=== PATIENT | male | born 1975 | race Caucasian/White ===

== ENCOUNTER 2016-10-03 15:46 | Inpatient (IN) | payer BC, MEDICAID, OTHER ==
--- NOTE | 2016-10-03 16:02 | EDPHY ---
H & P Stated Complaint: manic episode Source: Patient, Family, Police - Personal History Current Tetanus/Diphtheria Vaccine: Yes Current Tetanus Diphtheria and Acellular Pertussis (TDAP): Yes Tetanus Vaccine Date: < 10 years - Medical/Surgical History Hx Asthma: No Hx Chronic Respiratory Disease: No Hx Diabetes: No Hx Cardiac Disease: No Hx Renal Disease: No Hx Cirrhosis: No Hx Alcoholism: No Hx HIV/AIDS: No Hx Splenectomy or Spleen Trauma: No Other PMH: bipolar, anxiety - Social History Smoking Status: Never smoked HPI/ROS: CHIEF COMPLAINT: M1, Paranoia HISTORY OF PRESENT ILLNESS: The patient is a currently homeless 40 y/o male arriving voluntarily via [employer] with [employer] customer contact representative on M1 for paranoia. Per his father, who is a physician and called the ED from [id number], the patient has a history of possibly bipolar I vs. schizoaffective disorder and decompensated 6 weeks ago. The patient is concerned that other people are going to harm him and has begun hearing voices. He sought out help voluntarily looking for help with his paranoia. He says, "I'm starting to have voices I haven't had before" that are "telling me other people are going to harm me." He denies visual hallucinations , but does endorse odd smells and says, "I thought people were trying to douse me with different chemicals, but I think that's probably the paranoia." He is complaint with his Gaffney and is asking for medication for anxiety in conjunction with his Gaffney. He reports he's tried several different antipsychotics that cause dyskinesias and un-tolerable side effects. He denies any recent illness, vomiting, diarrhea, abdominal pain, fever, or cough. REVIEW OF SYSTEMS: A 10 point review of systems was performed and is negative with the exception of the elements mentioned in the history of present illness. (Angeles Young) - Medical/Surgical History PMH: Schizoaffective disorder vs. bipolar I. (Angeles Young) - Social History Additional Social History: 2-3 drinks of alcohol daily. No cigarette use. "Couple grams" marijuana daily when he can afford it. 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 From [place] , but lived in [place] previously during school at [employer]. Father is a physician. Psychiatrist in [place]. Therapist [place]. Father: Anthony Shah [phone] Psychiatrist in [place]: Dr. Anderson [phone] (Angeles Young) - Physical Exam Exam: General Appearance: Alert, no acute distress. BP 147/92. Well groomed. Eyes: Pupils equal and round, no conjunctival injection, no discharge. ENT, Mouth: Mucous membranes are moist, no oropharyngeal erythema or edema. Neck: No lymphadenopathy, supple. Respiratory: Lungs are clear to auscultation; no wheezes, rales, or rhonchi. Cardiovascular: Regular rate and rhythm; no murmur, rub, or gallop. Gastrointestinal: Abdomen is soft and non tender, no masses or organomegaly, bowel sounds normal. Skin: Warm and dry, no rashes, normal color. Back: Nontender to palpation over the thoracolumbar spine. Extremities: No lower extremity edema, no calf tenderness or swelling. Neurological: Alert and oriented. Moving all four extremities easily and equally. Psychiatric: Anxious, paranoid. Pressured speech, directable during my exam. ( Angeles Young) Constitutional: Initial Vital Signs Temperature (C) 36.9 C 10/03/16 15:46 Heart Rate 93 10/03/16 15:46 Respiratory Rate 20 10/03/16 15:46 Blood Pressure 147/92 H 10/03/16 15:46 O2 Sat (%) 94 10/03/16 15:46 O2 Delivery Mode Room Air Allergies/Adverse Reactions: carbamazepine [From Tegretol] Allergy (Verified 10/03/16 15:52) Sulfa (Sulfonamide Antibiotics) Allergy (Verified 10/03/16 15:52) Home Medications: Medication Instructions Recorded Gaffney Carbonate ER [Lithobid 300 600 mg PO HS 10/03/16 mg (*)] Herbals/Supplements -Info Only 1 ea PO DAILY 10/04/16 Gaffney Carbonate ER [Eskalith Cr 450 mg PO DAILY 10/04/16 450 mg (*)] Vitamin B Complex [B Complex] 1 tab PO DAILY 10/04/16 diphenhydrAMINE [Benadryl 25 MG 25 mg PO DAILY PRN 10/04/16 (*)] Medical Decision Making ED Course/Re-evaluation: Stable vitals. Plan for standard psychiatric clearance labs then mental health assessment. 1655: Patient is becoming agitated and yelling threats at staff. IM Haldol and Ativan administered. Benadryl given also because of his history of reactions to antipsychotic medications. Gaffney 600 mg given. He tells me that he "bites off" his dose of lithium, thinks he takes 1050 mg daily, in two doses. He admits to missing today's dose. Gaffney level is low. He has remained cooperative throughout the rest of my shift. His care is transferred to Dr. Aaron Arias at 11:00 p.m.. Awaiting psychiatric evaluation at that time. (Angeles Young) 0649AM: No acute events overnight. Patient still needs mental health evaluation. (Aaron Arias) Differential Diagnosis: I considered a differential diagnosis that includes but is not limited to psychosis, mary, depression, suicidality, homicidality, drug abuse, medication noncompliance. (Angeles Young) Other Provider: I assumed care of the patient at 7 o'clock in the morning pending psychiatric evaluation. The patient remained stable throughout my shift. At 11:30 a.m. I am informed the patient has been accepted for inpatient psychiatric hospitalization here at [facility]. (Thien Vieira) - Data Points Laboratory Results: Laboratory Results 10/03/16 16:14 10/03/16 16:14 10/03/16 16:14 Total Bilirubin 0.8 mg/dL mg/dL (0.1-1.4) Conjugated Bilirubin 0.4 mg/dL mg/dL (0.0-0.5) Unconjugated Bilirubin 0.4 mg/dL mg/dL (0.0-1.1) AST 27 IU/L IU/L (17-59) ALT 26 IU/L IU/L (21-72) Alkaline Phosphatase 64 IU/L IU/L (38-126) Total Protein 7.9 g/dL g/dL (6.3-8.2) Albumin 4.7 g/dL g/dL (3.5-5.0) Medications Given: Discontinued Medications Diphenhydramine HCl (Benadryl Injection) 25 mg IM EDNOW ONE Stop: 10/03/16 17:03 Last Admin: 10/03/16 17:03 Dose: 25 mg Haloperidol Lactate (Haldol Injection) 5 mg IM EDNOW ONE Stop: 10/03/16 17:02 Last Admin: 10/03/16 17:03 Dose: 5 mg Gaffney Carbonate (Gaffney Carbonate) 600 mg PO EDNOW ONE Stop: 10/03/16 17:42 Last Admin: 10/04/16 01:36 Dose: 600 mg Lorazepam (Ativan Injection) 2 mg IM EDNOW ONE Stop: 10/03/16 17:02 Last Admin: 10/03/16 17:03 Dose: 2 mg Departure - Departure Disposition: [facility] IP Clinical Impression: Acute psychosis, Depression Condition: Good Report Scribed for: Angeles Young Report Scribed by: Tamera Gao Date of Report: 10/03/16 Time of Report: 16:28 Physician Review and Approval Statement: 10/03/16 16:40 Portions of this note were transcribed by the medical staff coordinator. I, Dr. Angeles Young, personally performed the history, physical exam, and medical decision- making; and confirmed the accuracy of the information in the transcribed note. ( Angeles Young)
[2016-10-03 16:30] LABS: % IMMATURE GRANULYOCYTES 0.3 % (0.0-1.1); ABSOLUTE IMMATURE GRANULOCYTES 0.03 10^3/uL (0.00-0.10); ADD DIFF? NO; ADD MORPH? NO; ADD SCAN? NO; ATYPICAL LYMPHOCYTE FLAG 0 (0-99); FRAGMENT RBC FLAG 0 (0-99); HEMATOCRIT 42.1 % (40.0-51.0); HEMOGLOBIN 14.7 g/dL (13.7-17.5); LEFT SHIFT FLG 0 (0-99); LIPEMIA HEMOLYSIS FLAG 90 (0-99); MEAN CELL HEMOGLOBIN 31.8 pg (27.9-34.1); MEAN CELL HEMOGLOBIN CONCENTR. 34.9 g/dL (32.4-36.7); MEAN CELL VOLUME 91.1 fL (81.5-99.8); MEAN PLATELET VOLUME 9.7 fL (8.7-11.7); PLATELET CLUMPS FLAG 0 (0-99); PLATELET COUNT 289 10^3/uL (150-400); RED BLOOD CELL COUNT 4.62 10^6/uL (4.40-6.38); RED CELL DISTRIBUTION WIDTH 11.5 % (11.5-15.2)
[2016-10-03 16:43] LABS: ANION GAP 10 mEq/L (8-16); CALCIUM 10.4 mg/dL (8.5-10.4); CARBON DIOXIDE 26 mEq/l (22-31); CHLORIDE 101 mEq/L (97-110); CREATININE 0.8 mg/dL (0.7-1.3); ETHANOL SERUM < 10 mg/dL (0-10); GLOMERULAR FILTRATION RATE > 60; GLUCOSE 106 mg/dL (70-100); LITHIUM 0.4 mEq/L (0.6-1.2); POTASSIUM 4.4 mEq/L (3.5-5.2); SODIUM 137 mEq/L (134-144)
[2016-10-03] MEDS ORDERED: LORazepam 2 MG/ML INJ ONE (16:55)
[2016-10-03] MEDS ORDERED: HALOPERIDOL LACT 5 MG/ML INJ ONE (16:55)
[2016-10-03] MEDS ORDERED: LORazepam 2 MG/ML INJ IM ONE (17:01)
[2016-10-03] MEDS ORDERED: HALOPERIDOL LACT 5 MG/ML INJ IM ONE (17:01)
[2016-10-03] MEDS ORDERED: LITHIUM CARBONATE 300 MG TAB PO ONE (17:41)
[2016-10-04] MEDS ORDERED: LITHIUM CARBONATE 300 MG TAB ONE ×2 (01:28→01:30)
[2016-10-04 12:47] LABS: ALBUMIN 4.7 g/dL (3.5-5.0); BILIRUBIN,TOTAL 0.8 mg/dL (0.1-1.4); BILIRUBIN-CONJUGATED 0.4 mg/dL (0.0-0.5); BILIRUBIN-UNCONJUGATED 0.4 mg/dL (0.0-1.1); TOTAL PROTEIN 7.9 g/dL (6.3-8.2)
[2016-10-04] MEDS ORDERED: MAGNESIUM HYDROXIDE 30 ML UDCUP PO PRN (15:17)
[2016-10-04] MEDS ORDERED: MAG HYDROX/AL HYDROX/SIMETH 30 ML UDCUP PO PRN (15:17)
[2016-10-04] MEDS ORDERED: OLANZapine 5 MG TAB PO PRN (15:19)
[2016-10-04] MEDS: LITHIUM CARBONATE ER 300 MG TAB PO SCH (21:01)
[2016-10-05] MEDS: LITHIUM CARBONATE ER 450 MG TAB PO SCH (08:47)
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
[2016-10-05] MEDS: LITHIUM CARBONATE ER 300 MG TAB PO SCH (20:18)
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
[2016-10-06] MEDS: LITHIUM CARBONATE ER 450 MG TAB PO SCH ×2 (08:36→11:31)
[2016-10-06] MEDS ORDERED: VITAMIN B COMPLEX 1 EA CAP/TAB PO SCH (14:15)
[2016-10-06] MEDS ORDERED: Herbals/Supplements -Info Only PO SCH (14:30)
--- NOTE | 2016-10-06 15:49 | SOAPPROG ---
SOAP Progress Note Assessment/Plan: Assessment: Plan: 10/06/16 15:52 Remains manic. Unable to adequately care for his needs or manage his illness at this time. He has had numerous recurrent hospitalizations and needs to achieve a periods of lasting stability. Will place on a STC and continue lithium alone for now as he refuses any other medications inc: any antipsychotic or additional mood stabilizer. Subjective: Pt seen, discussed with staff, chart reviewed, case discussed with Dr. Godinez and pt's outpt psychiatrist in [place], Dr. Banuelos. He is a 40 y/o CM with history of Bipolar D/o. Admitted due to mary. He is taking lithium at his previous outpatient dose, though refused it this morning. He slept 4 hours last night. Staff notes that he is accelerated, irritable and seems disorganized and irrational at times. Stated to CC that he was going to go to [place] or [place] and wants to climb the [place] or live in the [facility]. He tells me today that he is going to "go for a really long backpacking trip" by himself. He insists on d/c from the hospital today. He refuses to stay in the hospital on a voluntary basis. He refuses to take any antipsychotic despite his primary psychiatrist's observation that he has done better in the past when he takes them. He states he is going to fabio me and the hospital if I make him stay. He is informed of the goals for d/c and to be a voluntary patient. These include: sleeping more than six hours per night, exhibiting a stable mood with no excessive irritability and making a safe plan for housing and support. Objective: Vital Signs Temp Pulse Resp BP Pulse Ox 36.8 C 75 16 121/74 H 100 10/06/16 06:00 10/06/16 06:00 10/06/16 06:00 10/06/16 06:00 10/06/16 06:00 MSE: Animate, mildly agitated. Affect is expansive, irritable. Mood is "fine. " TP generally linear. TC reveals no overt psychosis, though poor reality testing and poor insight and judgement. Denies SI/HI/. - Time Spent With Patient Time Spent With Patient: 35" - Pending Discharge Pending Discharge Within 24 Hours: No Pending Discharge Within 48 Hours: No ICD10 Worksheet Patient Problems: Problems Problem Status Onset Acute psychosis Acute Depression Acute
[2016-10-06] MEDS ORDERED: VITAMIN B COMPLEX 1 EA CAP/TAB PO ONE (20:25)
[2016-10-06] MEDS: VITAMIN B COMPLEX 1 EA CAP/TAB PO SCH ×2 (20:27→20:28)
[2016-10-06] MEDS: LITHIUM CARBONATE ER 300 MG TAB PO SCH (20:58)
[2016-10-06] MEDS: LORazepam 0.5 MG TAB PO PRN (21:42)
[2016-10-07] MEDS: CHOLECALCIFEROL VIT D3 1,000 UNITS TAB PO SCH (09:11)
[2016-10-07] MEDS: LITHIUM CARBONATE ER 450 MG TAB PO SCH (09:11)
[2016-10-07] MEDS: VITAMIN B COMPLEX 1 EA CAP/TAB PO SCH (09:11)
--- NOTE | 2016-10-07 17:53 | SOAPPROG ---
SOAP Progress Note Assessment/Plan: Assessment: Plan: 10/06/16 15:52 Remains manic. Unable to adequately care for his needs or manage his illness at this time. He has had numerous recurrent hospitalizations and needs to achieve a periods of lasting stability. Will place on a STC and continue lithium alone for now as he refuses any other medications inc: any antipsychotic or additional mood stabilizer. 10/07/16 17:53 Chayito persists though more compliant today. Will CCM, monitor. Subjective: Pt seen, discussed with staff. He is calmer, more appropriate with me today. Talks in great detail about his recent revelations in math and physics and how this has caused him to "get a lot of people's attention." By this he means that he is being tracked and followed by the SUN and NSA because they want to kill him "to suppress my knowledge." States he is agreeable to staying in the hospital for now to stabilize on his meds and to allow his mother to help in d/ c planning or at least identification of resources. Objective: Vital Signs Temp Pulse Resp BP Pulse Ox 36.8 C 46 L 16 103/60 100 10/07/16 06:00 10/07/16 06:00 10/07/16 06:00 10/07/16 06:00 10/07/16 06:00 MSE: Moderately agitated, much more pleasant and coop. Speech is rapid, pressured. Affect is expansive, less irritable. Mood is "good.' TP tangential. TC reveals grandiose and paranoid delusions, IOR's. - Time Spent With Patient Time Spent With Patient: 25" - Pending Discharge Pending Discharge Within 24 Hours: No Pending Discharge Within 48 Hours: No ICD10 Worksheet Patient Problems: Problems Problem Status Onset Acute psychosis Acute Depression Acute
[2016-10-07] MEDS: LITHIUM CARBONATE ER 300 MG TAB PO SCH (21:02)
[2016-10-07] MEDS: LORazepam 0.5 MG TAB PO PRN (21:27)
[2016-10-08] MEDS: CHOLECALCIFEROL VIT D3 1,000 UNITS TAB PO SCH (09:27)
[2016-10-08] MEDS: LITHIUM CARBONATE ER 450 MG TAB PO SCH (09:27)
[2016-10-08] MEDS: VITAMIN B COMPLEX 1 EA CAP/TAB PO SCH (09:27)
--- NOTE | 2016-10-08 19:14 | SOAPPROG ---
SOAP Progress Note Assessment/Plan: Assessment: Plan: 10/06/16 15:52 Remains manic. Unable to adequately care for his needs or manage his illness at this time. He has had numerous recurrent hospitalizations and needs to achieve a periods of lasting stability. Will place on a STC and continue lithium alone for now as he refuses any other medications inc: any antipsychotic or additional mood stabilizer. 10/07/16 17:53 Chayito persists though more compliant today. Will [facility], monitor. 10/08/16 19:17 Remains severely ill. Presents well for while, but easily provoked without intention to reveal paranoid and aggressive thoughts. Remains gravely disabled and a threat to others. Will CCM, monitor closely. Place on assault precautions. Subjective: Pt seen, discussed with staff. Initially friendly and conversant when I enter the room with his permission. He is doing vigorous jumping jacks. Appears anxious, straining to appear happy and composed. Greets me heartily at first. He informs me that he has reviewed the paperwork and that we are "grossly out of compliance." He believes the [facility] paperwork was altered and states that several staff members "are going to fci." I tried to reinforce the concept that I was only interested in his wellbeing and he becomes enraged, shouting, " I know you are with the NSA and I am going to out you. You're !" I terminate the interview due to escalating agitation. Objective: Vital Signs Temp Pulse Resp BP Pulse Ox 36.4 C 59 L 16 102/64 98 10/08/16 06:00 10/08/16 06:00 10/08/16 06:00 10/08/16 06:00 10/08/16 06:00 MSE: Agitated, hostile, guarded, threatening. Affect is labile, angry. Mood is "pissed off." TP tangential to disorganized. TC reveals paranoid/ persecutory and grandiose delusions, IOR's, possible AH's. He placed me in reasonable fear of harm during interview due to level of verbal aggression/ hostility and physical imposition. - Time Spent With Patient Time Spent With Patient: 25" - Pending Discharge Pending Discharge Within 24 Hours: No Pending Discharge Within 48 Hours: No ICD10 Worksheet Patient Problems: Problems Problem Status Onset Acute psychosis Acute Depression Acute
[2016-10-08] MEDS: LITHIUM CARBONATE ER 300 MG TAB PO SCH (21:06)
[2016-10-08] MEDS: LORazepam 0.5 MG TAB PO PRN (22:01)
[2016-10-09] MEDS: LITHIUM CARBONATE ER 450 MG TAB PO SCH (11:03)
[2016-10-09] MEDS: VITAMIN B COMPLEX 1 EA CAP/TAB PO SCH (11:04)
[2016-10-09] MEDS: CHOLECALCIFEROL VIT D3 1,000 UNITS TAB PO SCH (11:04)
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
[2016-10-09] MEDS: LITHIUM CARBONATE ER 300 MG TAB PO SCH ×2 (17:36→18:23)
[2016-10-09] MEDS: LORazepam 0.5 MG TAB PO PRN (20:29)
[2016-10-10 08:36] LABS: LITHIUM 0.9 mEq/L (0.6-1.2)
[2016-10-10] MEDS: CHOLECALCIFEROL VIT D3 1,000 UNITS TAB PO SCH (09:11)
[2016-10-10] MEDS: LITHIUM CARBONATE ER 450 MG TAB PO SCH (09:11)
[2016-10-10] MEDS: VITAMIN B COMPLEX 1 EA CAP/TAB PO SCH (09:11)
--- NOTE | 2016-10-10 14:43 | SOAPPROG ---
SOAP Progress Note Assessment/Plan: Assessment: Plan: 10/06/16 15:52 Remains manic. Unable to adequately care for his needs or manage his illness at this time. He has had numerous recurrent hospitalizations and needs to achieve a periods of lasting stability. Will place on a STC and continue lithium alone for now as he refuses any other medications inc: any antipsychotic or additional mood stabilizer. 10/07/16 17:53 Chayito persists though more compliant today. Will [facility], monitor. 10/08/16 19:17 Remains severely ill. Presents well for while, but easily provoked without intention to reveal paranoid and aggressive thoughts. Remains gravely disabled and a threat to others. Will [facility], monitor closely. Place on assault precautions. 10/09/16 15:26 Pt remains very ill. Unable to contain his delusions. I attempted to discuss the use of an atypical neuroleptic with pt and he accuses me "trying to kill me. " States, "I can't believe you would prescribe a medication you know is bad for me. You must want me to ." Terminated interview due to level of pt's agitation. He is warned of possible phone restriction if he continues calling police. Continue lithium alone at this point. Subjective: Some improvement today. [facility]. Objective: Vital Signs Temp Pulse Resp BP Pulse Ox 36.5 C 62 16 99/56 L 98 10/10/16 06:00 10/10/16 06:00 10/10/16 06:00 10/10/16 06:00 10/10/16 06:00 MSE: Adequately groomed, much more cooperative. Affect is constricted, stable , less irritable. TP linear. TC reveals continued paranoid delusions, IOR's. Li=0.9 this morning. - Time Spent With Patient Time Spent With Patient: 25" - Pending Discharge Pending Discharge Within 24 Hours: No Pending Discharge Within 48 Hours: No ICD10 Worksheet Patient Problems: Problems Problem Status Onset Acute psychosis Acute Depression Acute
[2016-10-10] MEDS: LITHIUM CARBONATE ER 300 MG TAB PO SCH (21:15)
[2016-10-10] MEDS: LORazepam 0.5 MG TAB PO PRN (21:49)
[2016-10-11] MEDS: VITAMIN B COMPLEX 1 EA CAP/TAB PO SCH (08:50)
[2016-10-11] MEDS: LITHIUM CARBONATE ER 450 MG TAB PO SCH (08:50)
[2016-10-11] MEDS: CHOLECALCIFEROL VIT D3 1,000 UNITS TAB PO SCH (08:50)
--- NOTE | 2016-10-11 11:13 | SOAPPROG ---
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 since admission he has refuse to take antipsychotic medication, only c ompled with [place] which current is measured at a blood level of 0.9. We are not finding clinical notes indicating a request for COM/ on direct exam pt presents as articulate, relatively calm, well-kempt in blue blazer and slacks, and floridly delusional reporting persecutory thought about being pursued by the [facility], [facility], [employer], and other governmental agencies; agrees to talk with me further about his concerns; affectively is stabilizing ASSESSMENT/PLAN: residual psychotic acuity/ will contact Dr Trevino about ? of requesting COM; O/W no change in current meds or management plan; will f/u to address pt psychosis and resistance to taking antipsychotic medication Objective: Vital Signs Temp Pulse Resp BP Pulse Ox 36.5 C 62 16 99/56 L 98 10/10/16 06:00 10/10/16 06:00 10/10/16 06:00 10/10/16 06:00 10/10/16 06:00 ICD10 Worksheet Patient Problems: Problems Problem Status Onset Acute psychosis Acute Depression Acute
[2016-10-11] MEDS: LITHIUM CARBONATE ER 300 MG TAB PO SCH (21:45)
[2016-10-11] MEDS: LORazepam 0.5 MG TAB PO PRN (21:48)
--- NOTE | 2016-10-12 07:08 | SOAPPROG ---
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 Since admission he has refused to take antipsychotic medication, only complied with [place] which currently is measured at a blood level of 0.9. We are not finding clinical notes indicating a request for COM/ on direct exam pt presents as articulate, relatively calm, well-kempt in blue blazer and slacks, and floridly delusional reporting persecutory thought about being pursued by the [facility], [employer], and other governmental agencies; agrees to talk with me further about his concerns; affectively is stabilizing. ASSESSMENT/PLAN: residual psychotic acuity/ will contact Dr Trevino about ? of requesting COM; o/w no change in current meds or management plan; will f/u to address pt psychosis and resistance to taking antipsychotic medication 10/12/16 DAY ' UPDATE/EXAM: Objective: Vital Signs Temp Pulse Resp BP Pulse Ox 36.6 C 56 L 14 106/66 94 10/12/16 06:09 10/12/16 06:09 10/12/16 06:09 10/12/16 06:09 10/12/16 06:09 ICD10 Worksheet Patient Problems: Problems Problem Status Onset Acute psychosis Acute Depression Acute
[2016-10-12] MEDS: VITAMIN B COMPLEX 1 EA CAP/TAB PO SCH (09:04)
[2016-10-12] MEDS: LITHIUM CARBONATE ER 450 MG TAB PO SCH (09:04)
[2016-10-12] MEDS: CHOLECALCIFEROL VIT D3 1,000 UNITS TAB PO SCH (09:04)
[2016-10-12] MEDS: LITHIUM CARBONATE ER 300 MG TAB PO SCH (22:05)
[2016-10-12] MEDS: LORazepam 0.5 MG TAB PO PRN (22:13)
--- NOTE | 2016-10-13 08:19 | SOAPPROG ---
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 Since admission he has refused to take antipsychotic medication, only complied with [place] which currently is measured at a blood level of 0.9. We are not finding clinical notes indicating a request for COM/ on direct exam pt presents as articulate, relatively calm, well-kempt in blue blazer and slacks, and floridly delusional reporting persecutory thought about being pursued by the [facility], A, and other governmental agencies; agrees to talk with me further about his concerns; affectively is stabilizing. ASSESSMENT/PLAN: residual psychotic acuity/ will contact Dr Trevino about ? of requesting COM; o/w no change in current meds or management plan; will f/u to address pt psychosis and resistance to taking antipsychotic medication 10/12/16 DAY UPDATE/EXAM: Nursing reports pt sleeping well but when wakeful evidencing florid persecutory delusions, isolative, intermittently agitated, irritable, verbally demanding and/or abusive; when father visited today pt became loud and verbally abusive toward him - father left unit and I met with him off the unit/ on direct exam pt was dismissive on contact and muttered about not needing to be in hospital; did not pursue the contact later in day and will f/u in AM. FOC/INTAKE: met with father 20' off the unit; gave me copy of son's syndromal and rx history beginning age 16 with dx'd anxiety syndrome and ADD thru onset of dx'd Bipolar Disorder 1 - rapid cycling to the present; pt was untreated and off meds for 9 years - 2003 -2013 while using various structured programs for substance abuse ([facility] and others) quaker communities, psychosocial support resources; psychotic vulnerability more in evidence last 4 year after graduating from [employer]. He has had side effect problems from multiple atypicals and been resistant to taking antipsychotics most of the last 2 years which have been very chaotic years thru to present state of psychotic acuity at time of this admission. This detailed history has been shared with Drs. Trevino and Libertad. 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 ASSESSMENT/PLAN; residual psychotic acuity c/w Schizoaffective Disorder in exacerbated state/ no current change in meds or management plan; willlike need COM comply with using antipychotics; no evidence of court-supported authorized treatment of probated rx plans used in the past - will try to confirm Objective: Vital Signs Temp Pulse Resp BP Pulse Ox 36.8 C 58 L 16 105/66 92 10/13/16 06:00 10/13/16 06:00 10/13/16 06:00 10/13/16 06:00 10/13/16 06:00 ICD10 Worksheet Patient Problems: Problems Problem Status Onset Acute psychosis Acute Depression Acute
[2016-10-13] MEDS: CHOLECALCIFEROL VIT D3 1,000 UNITS TAB PO SCH (09:04)
[2016-10-13] MEDS: LITHIUM CARBONATE ER 450 MG TAB PO SCH (09:04)
[2016-10-13] MEDS: VITAMIN B COMPLEX 1 EA CAP/TAB PO SCH (09:04)
[2016-10-13] MEDS: LORazepam 0.5 MG TAB PO PRN (21:06)
[2016-10-13] MEDS: LITHIUM CARBONATE ER 300 MG TAB PO SCH (21:06)
--- NOTE | 2016-10-14 06:39 | SOAPPROG ---
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 Since admission he has refused to take antipsychotic medication, only complied with [place] which currently is measured at a blood level of 0.9. We are not finding clinical notes indicating a request for COM/ on direct exam pt presents as articulate, relatively calm, well-kempt in blue blazer and slacks, and floridly delusional reporting persecutory thought about being pursued by the [facility], A, and other governmental agencies; agrees to talk with me further about his concerns; affectively is stabilizing. ASSESSMENT/PLAN: residual psychotic acuity/ will contact Dr Trevino about ? of requesting COM; o/w no change in current meds or management plan; will f/u to address pt psychosis and resistance to taking antipsychotic medication 10/12/16 DAY UPDATE/EXAM: Nursing reports pt sleeping well but when wakeful evidencing florid persecutory delusions, isolative, intermittently agitated, irritable, verbally demanding and/or abusive; when father visited today pt became loud and verbally abusive toward him - father left unit and I met with him off the unit/ on direct exam pt was dismissive on contact and muttered about not needing to be in hospital; did not pursue the contact later in day and will f/u in AM. FOC/INTAKE: met with father 20' off the unit; gave me copy of son's syndromal and rx history beginning age 16 with dx'd anxiety syndrome and ADD thru onset of dx'd Bipolar Disorder 1 - rapid cycling to the present; pt was untreated and off meds for 9 years - 2003 -2012 while using various structured programs for substance abuse ([facility] and others) alevism communities, psychosocial support resources; psychotic vulnerability more in evidence last 4 year after graduating from [employer]. He has had side effect problems from multiple atypicals and been resistant to taking antipsychotics most of the last 2 years which have been very chaotic years thru to present state of psychotic acuity at time of this admission. This detailed history has been shared with Drs. Trevino and Libertad. 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 ASSESSMENT/PLAN; residual psychotic acuity c/w Schizoaffective Disorder in exacerbated state/ no current change in meds or management plan; jose francisco likely need COM to comply with using antipsychotics; no evidence of court-supported authorized treatment of probated rx plans used in the past - will try to confirm 10/13/16 14:00 DAY ' UPDATE/EXAM: Nursing reports no slubber frame changer last 24 hours - pt remain observable with psychotic acuity including self dialogging and expressing organized persecutory delusions, isolated to room most of the time, c/w [place] only/ on direct contact begins session in his room cooperatively but becomes angry and verbally abusive when I attempt discussion of how treatment can diminish his fears about the agencies harassment and allow him to live a more stable life, get off the "survivalist" level of having to run and live in his car; told me I was in the [place] and holding him in custodial in the hospital. Second contact with [facility] who requests contact with Dr Trevino before he returns to [place] on 10/15, expresses more urgency that his son receive antipsychotic meds and endorses implementing COM; understands I will be rounding with Dr Trevino in AM and will pass on his concerns ASSESSMENT/PLAN: sustaining florid thought disorder and angry psychotic stance with staff/ no change in meds or management plan; review case with Dr Trevino in AM Rounds Objective: Vital Signs Temp Pulse Resp BP Pulse Ox 36.8 C 58 L 16 105/66 92 10/13/16 06:00 10/13/16 06:00 10/13/16 06:00 10/13/16 06:00 10/13/16 06:00 ICD10 Worksheet Patient Problems: Problems Problem Status Onset Acute psychosis Acute Depression Acute
[2016-10-14] MEDS: LITHIUM CARBONATE ER 450 MG TAB PO SCH (10:08)
[2016-10-14] MEDS: CHOLECALCIFEROL VIT D3 1,000 UNITS TAB PO SCH (10:08)
[2016-10-14] MEDS: VITAMIN B COMPLEX 1 EA CAP/TAB PO SCH (10:08)
--- NOTE | 2016-10-14 16:28 | SOAPPROG ---
SOAP Progress Note Assessment/Plan: Assessment: Plan: 10/06/16 15:52 Remains manic. Unable to adequately care for his needs or manage his illness at this time. He has had numerous recurrent hospitalizations and needs to achieve a periods of lasting stability. Will place on a STC and continue lithium alone for now as he refuses any other medications inc: any antipsychotic or additional mood stabilizer. 10/07/16 17:53 Chayito persists though more compliant today. Will [facility], monitor. 10/08/16 19:17 Remains severely ill. Presents well for while, but easily provoked without intention to reveal paranoid and aggressive thoughts. Remains gravely disabled and a threat to others. Will [facility], monitor closely. Place on assault precautions. 10/09/16 15:26 Pt remains very ill. Unable to contain his delusions. I attempted to discuss the use of an atypical neuroleptic with pt and he accuses me "trying to kill me. " States, "I can't believe you would prescribe a medication you know is bad for me. You must want me to ." Terminated interview due to level of pt's agitation. He is warned of possible phone restriction if he continues calling police. Continue lithium alone at this point. 10/14/16 16:29 Improved over the weekend. [facility]. Will defer COM letter for now to foster the therapeutic alliance and give pt time to respond to lithium completely. It needs to be filed before the [facility] hearing. I indicated to him that October 21 is a reasonable date for this. Subjective: Pt seen, discussed with staff. Reports feeling "a lot better." States he had a "breakthrough" last night in which he "gained perspective on my thoughts. I discussed with him specifically my concerns that he has ongoing paranoid delusions that need to be addressed. He remains adamantly against the use of any antipsychotics. He states he "got many symptoms of TD from them." I explain that I would possibly request involuntary medications if he was not improved by the time of the hearing on his STC. He stated that he understood this. He was able to maintain his composure during the conversation. Dr. Copeland reported to me that patient was irritable and hostile over the weekend, becoming angry when he attempted to discuss his meds. He also accused Dr. Copeland of being part of the [employer] conspiracy against him. He discussed that with me today also, stating, "That was wrong. I shouldn't have been angry with Dr. Copeland." Remains guarded about the general topic of the NSA. He has organized his room to look like a law office with his desk sideways across the middle of the room and two chairs set up in front of it. He has several law books on the desk that are open and marked with sticky notes. Objective: Vital Signs Temp Pulse Resp BP Pulse Ox 36.8 C 58 L 12 83/41 L 98 10/14/16 06:00 10/14/16 06:00 10/14/16 06:00 10/14/16 06:00 10/14/16 06:00 MSE: Calm, cooperative, though guarded. Affect is constricted, stable. No irritability or hostility noted. Mood is "fine." TP generally linear. TC reveals no mention of paranoid delusional systems. - Time Spent With Patient Time Spent With Patient: 25" - Pending Discharge Pending Discharge Within 24 Hours: No Pending Discharge Within 48 Hours: No ICD10 Worksheet Patient Problems: Problems Problem Status Onset Acute psychosis Acute Depression Acute
[2016-10-14] MEDS: LITHIUM CARBONATE ER 300 MG TAB PO SCH (21:12)
[2016-10-14] MEDS: LORazepam 0.5 MG TAB PO PRN (21:44)
[2016-10-15] MEDS: LITHIUM CARBONATE ER 450 MG TAB PO SCH (08:56)
[2016-10-15] MEDS: CHOLECALCIFEROL VIT D3 1,000 UNITS TAB PO SCH (08:56)
[2016-10-15] MEDS: VITAMIN B COMPLEX 1 EA CAP/TAB PO SCH (08:56)
--- NOTE | 2016-10-15 17:35 | SOAPPROG ---
SOAP Progress Note Assessment/Plan: Assessment: Plan: 10/06/16 15:52 Remains manic. Unable to adequately care for his needs or manage his illness at this time. He has had numerous recurrent hospitalizations and needs to achieve a periods of lasting stability. Will place on a STC and continue lithium alone for now as he refuses any other medications inc: any antipsychotic or additional mood stabilizer. 10/07/16 17:53 Chayito persists though more compliant today. Will [facility], monitor. 10/08/16 19:17 Remains severely ill. Presents well for while, but easily provoked without intention to reveal paranoid and aggressive thoughts. Remains gravely disabled and a threat to others. Will [facility], monitor closely. Place on assault precautions. 10/09/16 15:26 Pt remains very ill. Unable to contain his delusions. I attempted to discuss the use of an atypical neuroleptic with pt and he accuses me "trying to kill me. " States, "I can't believe you would prescribe a medication you know is bad for me. You must want me to ." Terminated interview due to level of pt's agitation. He is warned of possible phone restriction if he continues calling police. Continue lithium alone at this point. 10/14/16 16:29 Improved over the weekend. [facility]. Will defer COM letter for now to foster the therapeutic alliance and give pt time to respond to lithium completely. It needs to be filed before the [facility]. I indicated to him that October 21 is a reasonable date for this. 10/15/16 17:36 Calm and coop today. Improving. Able to minimize delusions. CCM. Subjective: Pt seen, discussed with staff. Reports feeling "just fine." Engaging and pleasant. Tolerates conversation re: condition and treatment recommendations. Less irritable with staff. Remains focused on d/c, but is approp. stating, "It won't do me any good to fight with you and Dr. Copeland about it. I just need to get better and be discharged." Describes paranoid delusions as "inappropriate fantasies." Objective: Vital Signs Temp Pulse Resp BP Pulse Ox 36.8 C 49 L 12 100/58 L 99 10/15/16 06:00 10/15/16 06:00 10/15/16 06:00 10/15/16 06:00 10/15/16 06:00 MSE: Calm, coop. Somewhat guarded. Body posture is still, closed, but he is pleasant and interactive. Affect is euthymic, stable. Mood is "good." TP is linear with no derailment into delusional systems. TC reveals no mention of delusional systems. - Time Spent With Patient Time Spent With Patient: 15" - Pending Discharge Pending Discharge Within 24 Hours: No Pending Discharge Within 48 Hours: No ICD10 Worksheet Patient Problems: Problems Problem Status Onset Acute psychosis Acute Depression Acute
[2016-10-15] MEDS: LORazepam 0.5 MG TAB PO PRN (21:43)
[2016-10-15] MEDS: LITHIUM CARBONATE ER 300 MG TAB PO SCH (21:43)
[2016-10-16] MEDS: VITAMIN B COMPLEX 1 EA CAP/TAB PO SCH (09:56)
[2016-10-16] MEDS: CHOLECALCIFEROL VIT D3 1,000 UNITS TAB PO SCH (09:56)
[2016-10-16] MEDS: LITHIUM CARBONATE ER 450 MG TAB PO SCH (09:56)
--- NOTE | 2016-10-16 16:42 | SOAPPROG ---
SOAP Progress Note Assessment/Plan: Assessment: Plan: 10/06/16 15:52 Remains manic. Unable to adequately care for his needs or manage his illness at this time. He has had numerous recurrent hospitalizations and needs to achieve a periods of lasting stability. Will place on a STC and continue lithium alone for now as he refuses any other medications inc: any antipsychotic or additional mood stabilizer. 10/07/16 17:53 Chayito persists though more compliant today. Will [facility], monitor. 10/08/16 19:17 Remains severely ill. Presents well for while, but easily provoked without intention to reveal paranoid and aggressive thoughts. Remains gravely disabled and a threat to others. Will [facility], monitor closely. Place on assault precautions. 10/09/16 15:26 Pt remains very ill. Unable to contain his delusions. I attempted to discuss the use of an atypical neuroleptic with pt and he accuses me "trying to kill me. " States, "I can't believe you would prescribe a medication you know is bad for me. You must want me to ." Terminated interview due to level of pt's agitation. He is warned of possible phone restriction if he continues calling police. Continue lithium alone at this point. 10/14/16 16:29 Improved over the weekend. [facility]. Will defer COM letter for now to foster the therapeutic alliance and give pt time to respond to lithium completely. It needs to be filed before the [facility] hearing. I indicated to him that October 21 is a reasonable date for this. 10/15/16 17:36 Calm and coop today. Improving. Able to minimize delusions. CCM. 10/16/16 16:41 Calm and appropriate. CCM. Subjective: Pt seen, briefly. Pleasant and conversant. Discussed treatment plan. Slept well. No outbursts. Does not mention delusional systems. Objective: Vital Signs Temp Pulse Resp BP Pulse Ox 36.8 C 49 L 12 100/58 L 99 10/15/16 06:00 10/15/16 06:00 10/15/16 06:00 10/15/16 06:00 10/15/16 06:00 MSE: Calm, coop. Affect is full, bright. Mood is "good." TP linear. TC reveals no mention of delusional systems. No SI/HI/. - Time Spent With Patient Time Spent With Patient: 15" - Pending Discharge Pending Discharge Within 24 Hours: No Pending Discharge Within 48 Hours: No ICD10 Worksheet Patient Problems: Problems Problem Status Onset Acute psychosis Acute Depression Acute
[2016-10-16] MEDS: LORazepam 0.5 MG TAB PO PRN (21:40)
[2016-10-16] MEDS: LITHIUM CARBONATE ER 300 MG TAB PO SCH (21:40)
[2016-10-17] MEDS: LITHIUM CARBONATE ER 450 MG TAB PO SCH (08:36)
[2016-10-17] MEDS: VITAMIN B COMPLEX 1 EA CAP/TAB PO SCH (08:36)
[2016-10-17] MEDS: CHOLECALCIFEROL VIT D3 1,000 UNITS TAB PO SCH (08:37)
--- NOTE | 2016-10-17 14:15 | SOAPPROG ---
SOAP Progress Note Assessment/Plan: Assessment: Plan: 10/06/16 15:52 Remains manic. Unable to adequately care for his needs or manage his illness at this time. He has had numerous recurrent hospitalizations and needs to achieve a periods of lasting stability. Will place on a STC and continue lithium alone for now as he refuses any other medications inc: any antipsychotic or additional mood stabilizer. 10/07/16 17:53 Chayito persists though more compliant today. Will [facility], monitor. 10/08/16 19:17 Remains severely ill. Presents well for while, but easily provoked without intention to reveal paranoid and aggressive thoughts. Remains gravely disabled and a threat to others. Will [facility], monitor closely. Place on assault precautions. 10/09/16 15:26 Pt remains very ill. Unable to contain his delusions. I attempted to discuss the use of an atypical neuroleptic with pt and he accuses me "trying to kill me. " States, "I can't believe you would prescribe a medication you know is bad for me. You must want me to ." Terminated interview due to level of pt's agitation. He is warned of possible phone restriction if he continues calling police. Continue lithium alone at this point. 10/14/16 16:29 Improved over the weekend. [facility]. Will defer COM letter for now to foster the therapeutic alliance and give pt time to respond to lithium completely. It needs to be filed before the [facility] hearing. I indicated to him that October 21 is a reasonable date for this. 10/15/16 17:36 Calm and coop today. Improving. Able to minimize delusions. CCM. 10/16/16 16:41 Calm and appropriate. [facility]. 10/17/16 14:15 Continued to exhibit good behavioral control with no mention of delusions. He is agreeable to staying in [place] long enough to stabilize and to f//u with MHP 's. [facility]. Subjective: Pt seen, discussed with staff. Had a good discussion about his d/c plan. I reiterated my plan to reevaluate on Thursday whether he has adequately stabilized on lithium alone or will need an additional antipsychotic. He is anticipating d /c on Thursday to go his MHP's appointments, but I emphasized that that will be decided on Thursday based on his clinical condition. If he remains psychotic in the absence of manic symptoms, I will continue the STC and proceed to hearing for COM. He is unhappy about this possibility but tells me he understands and that is "fair." Objective: Vital Signs Temp Pulse Resp BP Pulse Ox 36.8 C 59 L 17 112/65 98 10/17/16 08:00 10/17/16 08:00 10/17/16 08:00 10/17/16 08:00 10/17/16 08:00 - Time Spent With Patient Time Spent With Patient: 25" - Pending Discharge Pending Discharge Within 24 Hours: No Pending Discharge Within 48 Hours: No ICD10 Worksheet Patient Problems: Problems Problem Status Onset Acute psychosis Acute Depression Acute
[2016-10-17] MEDS: LITHIUM CARBONATE ER 300 MG TAB PO SCH (21:53)
[2016-10-18] MEDS: diphenhydrAMINE 25 MG CAP PO PRN (00:35)
[2016-10-18] MEDS: LORazepam 0.5 MG TAB PO PRN ×2 (00:35→21:20)
[2016-10-18] MEDS: LITHIUM CARBONATE ER 450 MG TAB PO SCH (09:05)
[2016-10-18] MEDS: CHOLECALCIFEROL VIT D3 1,000 UNITS TAB PO SCH (09:05)
[2016-10-18] MEDS: VITAMIN B COMPLEX 1 EA CAP/TAB PO SCH (09:05)
--- NOTE | 2016-10-18 19:40 | SOAPPROG ---
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 Noncompliant with [place], declining function over past 2 yrs, notably over past 2 months traveling country, with no insight into his mental illness and need for meds. 10/18/16 14:31 Much improved from 2 wk ago on admission. has room set up as atty office. states he's been writing a tad. Expressing some insight into benefit of Gypsy for him. ta/led some of parents who had supported him but apparently will no longer, " but they have a long history of violating my boundaries." Plans to move to [facility] for the summer "to be closer to nature" then prob go back to [place]. Is +/- as to whether he felt hosp stay was helpful. "I'm grateful for discharge". Changed Gypsy to home supply b/c is convinced he had allergic reaction to the "red dye" in hospital [facility]. Denied acute physical or medical concerns. When asked about hosp course, meds, illness, "In retrospect, I didn't take the right approach. I should have increased my lithium and not focus on 'crazy' things." Chooses to "not answer that" when asked if he did really think his thoughts were 'crazy' and now resolved. Discussed need for med compliance to avoid readmissions, and risks of decomp with decr structure outside of hosp even w/o med changes. Invited pt to at least consider taking Saphris (which he was Rxd by outpt psych in [facility]) as prn during more stressful times (adamantly refuses to take any antipsychotics scheduled, if at all, altho would benefit) mse: cooperative, good eye contact, nml rate/vol speech, articulate, conversational. mood "good", affect more euthymic, thoughts organized, denied ah /vh, denied si/hi. no overt delusions expressed but still present. insight impaired but better, jdgt fair. PLAN: cont current meds. pt will not take any other than current ones Rxd agreeable to cont Li outpt cont STC Objective: Vital Signs Temp Pulse Resp BP Pulse Ox 36.7 C 58 L 12 112/71 100 10/18/16 06:21 10/18/16 06:21 10/18/16 06:21 10/18/16 06:21 10/18/16 06:21 - Time Spent With Patient Time Spent With Patient: 35min - Pending Discharge Pending Discharge Within 24 Hours: No Pending Discharge Within 48 Hours: No ICD10 Worksheet Patient Problems: Problems Problem Status Onset Acute psychosis Acute Depression Acute
[2016-10-18] MEDS: LITHIUM CARBONATE ER 300 MG TAB PO SCH (21:20)
[2016-10-19] MEDS: LITHIUM CARBONATE ER 450 MG TAB PO SCH (09:02)
[2016-10-19] MEDS: CHOLECALCIFEROL VIT D3 1,000 UNITS TAB PO SCH (09:02)
[2016-10-19] MEDS: VITAMIN B COMPLEX 1 EA CAP/TAB PO SCH (09:03)
[2016-10-19] MEDS: LITHIUM CARBONATE ER 300 MG TAB PO SCH (21:14)
[2016-10-19] MEDS: LORazepam 0.5 MG TAB PO PRN (21:16)
--- NOTE | 2016-10-20 05:15 | SOAPPROG ---
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 Noncompliant with [place], declining function over past 2 yrs, notably over past 2 months traveling country, with no insight into his mental illness and need for meds. 10/18/16 14:31 Much improved from 2 wk ago on admission. has room set up as atty office. states he's been writing a tad. Expressing some insight into benefit of [place] for him. ta/led some of parents who had supported him but apparently will no longer, " but they have a long history of violating my boundaries." Plans to move to [facility] for the summer "to be closer to nature" then prob go back to [place]. Is +/- as to whether he felt hosp stay was helpful. "I'm grateful for discharge". Changed [place] to home supply b/c is convinced he had allergic reaction to the "red dye" in hospital [facility]. Denied acute physical or medical concerns. When asked about hosp course, meds, illness, "In retrospect, I didn't take the right approach. I should have increased my lithium and not focus on 'crazy' things." Chooses to "not answer that" when asked if he did really think his thoughts were 'crazy' and now resolved. Discussed need for med compliance to avoid readmissions, and risks of decomp with decr structure outside of hosp even w/o med changes. Invited pt to at least consider taking Saphris (which he was Rxd by outpt psych in [facility]) as prn during more stressful times (adamantly refuses to take any antipsychotics scheduled, if at all, altho would benefit) mse: cooperative, good eye contact, nml rate/vol speech, articulate, conversational. mood "good", affect more euthymic, thoughts organized, denied ah /vh, denied si/hi. no overt delusions expressed but still present. insight impaired but better, jdgt fair. PLAN: cont current meds. pt will not take any other than current ones Rxd agreeable to cont Li outpt cont STC 10/19/16 15:04 per staff, slept 7.5hr staff report pt more reality based, but recall not long ago (?several days) he made calls to report being held in [employer] holding facility, and listed numerous very prominent "friends" pt reports doing "fine", no new concerns, no med s/e or any physical complaints. PLAN: -cont current meds. -FOR stability, need med compliance and ABSTAIN from substance use (was ordering substances online from the [employer]), regular sleep etc, and f/u MH -on [facility] Objective: Vital Signs Temp Pulse Resp BP Pulse Ox 36.8 C 60 14 121/76 H 100 10/19/16 06:33 10/19/16 06:33 10/19/16 06:33 10/19/16 06:33 10/19/16 06:33 - Time Spent With Patient Time Spent With Patient: 15min - Pending Discharge Pending Discharge Within 24 Hours: No Pending Discharge Within 48 Hours: No ICD10 Worksheet Patient Problems: Problems Problem Status Onset Acute psychosis Acute Depression Acute
[2016-10-20] MEDS: LITHIUM CARBONATE ER 450 MG TAB PO SCH (09:47)
[2016-10-20] MEDS: VITAMIN B COMPLEX 1 EA CAP/TAB PO SCH (09:47)
[2016-10-20] MEDS: CHOLECALCIFEROL VIT D3 1,000 UNITS TAB PO SCH (09:47)
--- NOTE | 2016-10-20 12:51 | SOAPPROG ---
SOAP Progress Note Assessment/Plan: Assessment: Plan: 10/06/16 15:52 Remains manic. Unable to adequately care for his needs or manage his illness at this time. He has had numerous recurrent hospitalizations and needs to achieve a periods of lasting stability. Will place on a STC and continue lithium alone for now as he refuses any other medications inc: any antipsychotic or additional mood stabilizer. 10/07/16 17:53 Chayito persists though more compliant today. Will [facility], monitor. 10/08/16 19:17 Remains severely ill. Presents well for while, but easily provoked without intention to reveal paranoid and aggressive thoughts. Remains gravely disabled and a threat to others. Will [facility], monitor closely. Place on assault precautions. 10/09/16 15:26 Pt remains very ill. Unable to contain his delusions. I attempted to discuss the use of an atypical neuroleptic with pt and he accuses me "trying to kill me. " States, "I can't believe you would prescribe a medication you know is bad for me. You must want me to ." Terminated interview due to level of pt's agitation. He is warned of possible phone restriction if he continues calling police. Continue lithium alone at this point. 10/14/16 16:29 Improved over the weekend. [facility]. Will defer COM letter for now to foster the therapeutic alliance and give pt time to respond to lithium completely. It needs to be filed before the [facility] hearing. I indicated to him that October 21 is a reasonable date for this. 10/15/16 17:36 Calm and coop today. Improving. Able to minimize delusions. [facility]. 10/16/16 16:41 Calm and appropriate. [facility]. 10/17/16 14:15 Continued to exhibit good behavioral control with no mention of delusions. He is agreeable to staying in [place] long enough to stabilize and to f//u with MHP 's. [facility]. 10/20/16 12:52 Doing well. No current evidence of psychosis. Able to formulate an appropriate and safe d/c plan. Will like d/c in the morning to f/u with MHP's. Subjective: Pt seen, discussed with staff. Reports feeling "just fine." Pleasant and interactive with me. Discussed d/c plan. Accepting of parents taking car back. States he will ride the bus and bike. Had a good weekend with no behavioral issues. Attending groups without incident. No mention of delusional material. Objective: Vital Signs Temp Pulse Resp BP Pulse Ox 36.8 C 60 14 121/76 H 100 10/19/16 06:33 10/19/16 06:33 10/19/16 06:33 10/19/16 06:33 10/19/16 06:33 MSE: Calm, coop, interactive. Affect is euthymic, stable, approp. Mood is "good." TP linear. TC reveals no overt psychosis. Denies SI/HI/. - Time Spent With Patient Time Spent With Patient: 15" - Pending Discharge Pending Discharge Within 24 Hours: Yes Pending Discharge Date: 10/21/16 Pending Discharge Time: 11:00 ICD10 Worksheet Patient Problems: Problems Problem Status Onset Acute psychosis Acute Depression Acute
--- NOTE | 2016-10-20 16:59 | SOAPPROG ---
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 Since admission he has refused to take antipsychotic medication, only complied with Escondida which currently is measured at a blood level of 0.9. We are not finding clinical notes indicating a request for COM/ on direct exam pt presents as articulate, relatively calm, well-kempt in blue blazer and slacks, and floridly delusional reporting persecutory thought about being pursued by the [facility], A, and other governmental agencies; agrees to talk with me further about his concerns; affectively is stabilizing. ASSESSMENT/PLAN: residual psychotic acuity/ will contact Dr Trevino about ? of requesting COM; o/w no change in current meds or management plan; will f/u to address pt psychosis and resistance to taking antipsychotic medication 10/12/16 DAY UPDATE/EXAM: Nursing reports pt sleeping well but when wakeful evidencing florid persecutory delusions, isolative, intermittently agitated, irritable, verbally demanding and/or abusive; when father visited today pt became loud and verbally abusive toward him - father left unit and I met with him off the unit/ on direct exam pt was dismissive on contact and muttered about not needing to be in hospital; did not pursue the contact later in day and will f/u in AM. FOC/INTAKE: met with father 20' off the unit; gave me copy of son's syndromal and rx history beginning age 16 with dx'd anxiety syndrome and ADD thru onset of dx'd Bipolar Disorder 1 - rapid cycling to the present; pt was untreated and off meds for 9 years - 2003 -2012 while using various structured programs for substance abuse ([facility] and others) anglican communities, psychosocial support resources; psychotic vulnerability more in evidence last 4 year after graduating from [employer]. He has had side effect problems from multiple atypicals and been resistant to taking antipsychotics most of the last 2 years which have been very chaotic years thru to present state of psychotic acuity at time of this admission. This detailed history has been shared with Drs. Trevino and Libertad. 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 Second contact with [facility] who requests contact with Dr Trevino before he returns to [place] on 10/15, expresses more urgency that his son receive antipsychotic meds and endorses implementing COM; understands I will be rounding with Dr Trevino in AM and will pass on his concerns ASSESSMENT/PLAN: sustaining florid thought disorder and angry psychotic stance with staff/ no change in meds or management plan; review case with Dr Trevino in AM Rounds 10/20/16 16:33 SECOND OPINION/ EVIDENCE FOR PSYCHOSIS/ READINESS FOR DISCHARGE TO OUTPT STATUS UPDATE: Case reviewed with Nursing and with Attending Psychiatrist; chart review ; pt examined; patient has continued resistance to taking antipsychotic medication but has sustained compliance with Escondida regimen as prescribed. ON EXAM: Pt presents as calm, cooperative, conversant; asked in some detail about his short-term and long-term syndromal and treatment history; appeared to understate the history for syndromal morbidity in terms of duration and dysfunction - particularly in terms of the length and intensity of psychotic symptoms. He did state his problems with side effects from a number of antipsychotics and the fact he'd been able to recompensate from psychotic sx and in the context of manic regressions on Escondida alone. He did describe his followup treatment plan with referral to [facility] and his plan to engage the plan for a period of time before moving for employment to [place], [place] and to transfer his outpt treatment when he moves, saying he know he needs to sustain psychiatric treatment including taking Escondida to remain stable. He did become irritable and guarded when he seemed to think I'd already decided to try to "force" antipsychotic medication on him in my my role as a bus info consultant but appeared to correct this with my clarification of my role. He did not display overt psychosis and only indicated suggestive IOR briefly. Mood was stable and affect mildy constricted and flattened. IMPRESSION: significantly improved; affective stabilization allowing pt to cope much better with any residual psychotic thought disorder which cannot be r/ o'd; prognosis out of the protective inpt setting is guarded given his vulnerability to community-driven decompensation. RECOMMENDATIONS: would support DC to community treatment with clarification to patient that we'd welcome him back if sx breakthru and sign-out case accordingly with P Team receiving pt post DC. Court-ordered authority to keep pt in hospital and authorize medications is unlikely given current status. Objective: Vital Signs Temp Pulse Resp BP Pulse Ox 36.5 C 74 14 110/56 L 99 10/20/16 08:00 10/20/16 08:00 10/19/16 06:33 10/20/16 08:00 10/20/16 08:00 ICD10 Worksheet Patient Problems: Problems Problem Status Onset Acute psychosis Acute Depression Acute
--- NOTE | 2016-10-20 17:00 | SOAPPROG ---
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 Since admission he has refused to take antipsychotic medication, only complied with Upper [place]oman which currently is measured at a blood level of 0.9. We are not finding clinical notes indicating a request for COM/ on direct exam pt presents as articulate, relatively calm, well-kempt in blue blazer and slacks, and floridly delusional reporting persecutory thought about being pursued by the [employer], [employer], and other governmental agencies; agrees to talk with me further about his concerns; affectively is stabilizing. ASSESSMENT/PLAN: residual psychotic acuity/ will contact Dr Trevino about ? of requesting COM; o/w no change in current meds or management plan; will f/u to address pt psychosis and resistance to taking antipsychotic medication 10/12/16 DAY UPDATE/EXAM: Nursing reports pt sleeping well but when wakeful evidencing florid persecutory delusions, isolative, intermittently agitated, irritable, verbally demanding and/or abusive; when father visited today pt became loud and verbally abusive toward him - father left unit and I met with him off the unit/ on direct exam pt was dismissive on contact and muttered about not needing to be in hospital; did not pursue the contact later in day and will f/u in AM. FOC/INTAKE: met with father 20' off the unit; gave me copy of son's syndromal and rx history beginning age 16 with dx'd anxiety syndrome and ADD thru onset of dx'd Bipolar Disorder 1 - rapid cycling to the present; pt was untreated and off meds for 9 years - 2003 -2012 while using various structured programs for substance abuse ([facility] and others) confucianist communities, psychosocial support resources; psychotic vulnerability more in evidence last 4 year after graduating from [employer]. He has had side effect problems from multiple atypicals and been resistant to taking antipsychotics most of the last 2 years which have been very chaotic years thru to present state of psychotic acuity at time of this admission. This detailed history has been shared with Drs. Trevino and [facility]. 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 ASSESSMENT/PLAN; residual psychotic acuity c/w Schizoaffective Disorder in exacerbated state/ no current change in meds or management plan; jose francisco likely need COM to comply with using antipsychotics; no evidence of court-supported authorized treatment of probated rx plans used in the past - will try to confirm 10/13/16 14:00 DAY UPDATE/EXAM: Nursing reports no government contracts manager last 24 hours - pt remain observable with psychotic acuity including self dialogging and expressing organized persecutory delusions, isolated to room most of the time, c/w Upper [place]oman only/ on direct contact begins session in his room cooperatively but becomes angry and verbally abusive when I attempt discussion of how treatment can diminish his fears about the agencies harassment and allow him to live a more stable life, get off the "survivalist" level of having to run and live in his car; told me I was in the [facility] and holding him in longterm in the hospital. Second contact with [facility] who requests contact with Dr Trevino before he returns to [place] on 10/15, expresses more urgency that his son receive antipsychotic meds and endorses implementing COM; understands I will be rounding with Dr Trevino in AM and will pass on his concerns ASSESSMENT/PLAN: sustaining florid thought disorder and angry psychotic stance with staff/ no change in meds or management plan; review case with Dr Trevino in AM Rounds 10/20/16 16:33 SECOND OPINION/ EVIDENCE FOR PSYCHOSIS/ READINESS FOR DISCHARGE TO OUTPT STATUS UPDATE: Case reviewed with Nursing and with Attending Psychiatrist; chart review ; pt examined; patient has continued resistance to taking antipsychotic medication but has sustained compliance with Upper Elochoman regimen as prescribed. ON EXAM: Pt presents as calm, cooperative, conversant; asked in some detail about his short-term and long-term syndromal and treatment history; appeared to understate the history for syndromal morbidity in terms of duration and dysfunction - particularly in terms of the length and intensity of psychotic symptoms. He did state his problems with side effects from a number of antipsychotics and the fact he'd been able to recompensate from psychotic sx and in the context of manic regressions on Upper [place]oman alone. He did describe his followup treatment plan with referral to [facility] and his plan to engage the plan for a period of time before moving for employment to [place], [place] and to transfer his outpt treatment when he moves, saying he know he needs to sustain psychiatric treatment including taking [place] to remain stable. He did become irritable and guarded when he seemed to think I'd already decided to try to "force" antipsychotic medication on him in my my role as a payroll consultant but appeared to correct this with my clarification of my role. He did not display overt psychosis and only indicated suggestive IOR briefly. Mood was stable and affect mildy constricted and flattened. IMPRESSION: significantly improved; affective stabilization allowing pt to cope much better with any residual psychotic thought disorder which cannot be r/ o'd; prognosis out of the protective inpt setting is guarded given his vulnerability to community-driven decompensation. RECOMMENDATIONS: would support DC to community treatment with clarification to patient that we'd welcome him back if sx breakthru and sign-out case accordingly with P Team receiving pt post DC. Court-ordered authority to keep pt in hospital and authorize medications is unlikely given current status. Objective: Vital Signs Temp Pulse Resp BP Pulse Ox 36.5 C 74 14 110/56 L 99 10/20/16 08:00 10/20/16 08:00 10/19/16 06:33 10/20/16 08:00 10/20/16 08:00 ICD10 Worksheet Patient Problems: Problems Problem Status Onset Acute psychosis Acute Depression Acute
[2016-10-20] MEDS: LITHIUM CARBONATE ER 300 MG TAB PO SCH (21:18)
[2016-10-20] MEDS: LORazepam 0.5 MG TAB PO PRN (21:54)
[2016-10-21] MEDS: diphenhydrAMINE 25 MG CAP PO PRN (03:18)
[2016-10-21 06:22] VITALS: BP 106/65; PULSE 62; RESP 16; TEMP 98.2; O2SAT 100
[2016-10-21] MEDS: LITHIUM CARBONATE ER 450 MG TAB PO SCH (08:21)
--- NOTE | 2016-10-21 12:43 | BDS ---
[f rep st] BEHAVIORAL HEALTH DISCHARGE SUMMARY REASON FOR ADMISSION: Patient is a 41-year-old male with a history of bipolar disorder. He was brought into the ED after he called 911 stating he was a political prisoner and that the [employer] and others were trying to kill him. He stated that there was isela gas in his car and that he was unsafe. They brought him to the emergency department where he was noted to be agitated, paranoid, and otherwise disorganized and was placed on an M1 hold. He was admitted to the [facility] inpatient unit on an M1 hold for further evaluation and treatment. A full description of the events preceding admission can be found in his admission history per Dr. Godinez. ADMITTING DIAGNOSES: Also per Dr. Godinez: 1. Bipolar mood disorder type 1, manic with psychosis, severe, with acute exacerbation. Rule out schizoaffective disorder bipolar type. 2. Cannabis use disorder, unspecified. 3. Alcohol use disorder, unspecified. Admission physical performed by Dr. Jean-Pierre Lin showed no acute physical findings. ADMISSION LABORATORY: CBC showed a white count up at 11.76. Neutrophils were up at 77.5%. Serum chemistries were normal. Liver function was normal. Urine drug screen showed no substances of abuse. Alcohol level was less than detectable. Blanding level was low at 0.4. HOSPITAL COURSE: Patient was admitted to the [facility] inpatient unit on an M1 hold. He was agitated, pressured, paranoid, and fairly irritable. He accused the staff and me of being [employer] agents and plotting against him. He made numerous witnessed phone calls to friends telling them he was in a secret NSA holding cell and that they needed to be careful. He was isolative and essentially stayed to himself in his room, afraid to come out and interact with others. His mother immediately came to the hospital from her home in [place], and I talked with her on her first day in [facility]. We spoke for approximately 2 hours, reviewed all of his past history which she also provided in written form. He participated with his mother and I in a family meeting on the first full day of hospitalization under my care, and we were able to review a treatment plan. The patient stated that he would not take any antipsychotics at any time because he believed they were bad for him and made him feel badly, but he stated he was willing to take lithium. He stated he had not been consistent with lithium, as evidenced by the low level, but that if he did take it as prescribed, he felt like it would be adequate to relieve his mary. He had no insight into his psychosis at that time. I informed him that I was going to apply for court-ordered medications due to the severity of the psychosis but that we would be able to take the lithium alone before that time to see if it was helpful. Patient's parents were both concerned that he would not fully improve without an antipsychotic and I shared this concern, though I explained to them repeatedly that we had to have specific criteria in order to give him medications against his will; and whether or not I wanted to give him an antipsychotic if he was refusing, I had to wait for the court hearing if there was no imminent dangerousness. The patient was then treated with lithium alone at his previous dose of 1050 mg. He tolerated this well with no side effects, though did have some mild rash on his foot at one point. He was unsure whether he should attribute that to the lithium or not. I encouraged him that I did not believe it was related. He took occasional lorazepam for either sleep or anxiety but otherwise took no other medicines. He did stabilize and his mood improved fairly rapidly. With consistent dosing, his level increased to 0.9. After about a week in the hospital, he was no longer paranoid or grandiose. He was not pressured and his thoughts were linear. There were some lingering ideas of reference that were related to his paranoid delusional system but these resolved also. At the time of discharge, the patient had no external evidence of psychosis of any type. On the day prior to discharge, I asked Dr. Copeland to do a 2nd opinion in regard to the patient's state. The point of this was we were 10 days from his involuntary medication court appointment, and I was seeing no evidence of acute psychosis. I questioned that he met criteria for ongoing involuntary hospitalization. Dr. Copeland was able to visit with him and found him to be defended, though not paranoid, and also found no evidence of acute psychosis. I was able to review with the patient and the spiritual care coordinator what the potential discharge plans could be. The patient wanted to go to the [facility] and then [facility] for followup treatment and medication. He stated he was willing to take lithium, and appointments were made for the 21 of October at 8:45 in the morning. The patient was ultimately discharged to that circumstance, and the spiritual care coordinator walked with him across the street for the appointment. I saw the patient on the day of discharge, and he was bright and appropriate, pleasant and cooperative. He was displaying no evidence of psychosis. His thought process was linear and goal directed. He was engaging and appropriate. He was voicing no thoughts of suicide, homicide, or violence. His insight and judgment appeared to be good. CONDITION ON DISCHARGE: Stable. His affect was euthymic, stable, and appropriate as mentioned below, and he was showing no evidence of psychosis. There were no markers for dangerousness, and he was voicing a desire to be compliant with the outpatient plan. DISCHARGE MEDICATIONS: Blanding carbonate ER 1050 mg at bedtime. DISPOSITION: The patient left the hospital of his own recognizance to walk across the street to the [facility] evaluation with the spiritual care coordinator. FOLLOWUP: [facility] at 8:45 on the morning of discharge. LEGAL COURSE: Patient was placed on short-term certification at the expiration of his M1 hold. The short-term certification was discontinued at the time of his discharge. /[id number]/MODL MTDD
== END 2016-10-21 08:23 | disposition home or self-care (01) | DRG 885 ==
LOC: BBEH 10-04 13:33
PROVIDERS: ADMIT Psychiatry & Neurology Behavioral Neurology & Neuropsychiatry; ATTEND Psychiatry & Neurology Behavioral Neurology & Neuropsychiatry
DX: F31.2 Bipolar disorder, current episode manic severe with psychotic features (principal); F20.0 Paranoid schizophrenia; Z59.0 Homelessness; F12.90 Cannabis use, unspecified, uncomplicated
CPT/HCPCS: 80305; G0480; J1200; J2060